=== PATIENT | female | born 1980 | race Caucasian/White ===

== ENCOUNTER 2016-09-19 12:59 | Outpatient (CLI) ==
[2016-03-03 23:12] VITALS: BMI 47.5
== END 2016-09-19 13:00 | disposition home or self-care (01) ==
LOC: LAB 12:59
PROVIDERS: ATTEND Otolaryngology
DX: H66.92 Otitis media, unspecified, left ear (principal)
CPT/HCPCS: 87070

== ENCOUNTER 2016-11-23 15:29 | Outpatient (CLI) ==
[2016-03-03 23:12] VITALS: BMI 47.5
--- NOTE | 2016-11-23 16:37 | CT ---
EXAM: CT Angiogram Chest. HISTORY: Shortness of breath. COMPARISON: None available. TECHNIQUE: Multiple axial images of the chest were obtained following intravenous administration of 125 mL of Omnipaque 350, low osmolar. Images were reformatted in the sagittal and coronal plane. 3-D and maximum intensity projection reformatted images were created on an independent workstation. FINDINGS: Multiple nonenlarged mediastinal lymph nodes are present. Heart size is normal. There i s no pericardial effusion. No pulmonary arterial filling defects are seen. Small focus of nodular ground-glass opacities seen in the posterior left lower lobe on axial images 27-29 and right lower lobe on axial images 31 and 3 2. The lungs are otherwise clear without pleural effusion or pneumothorax. Osseous structures are intact. No acute abnormalities seen in the upper abdomen. IMPRESSION: 1. No evidence for pulmonary embolus. 2. Small foci of pneumonitis in both lower lobes.
== END 2016-11-23 15:30 | disposition home or self-care (01) ==
LOC: RAD 15:29
PROVIDERS: ATTEND Nurse Practitioner Family
DX: R06.02 Shortness of breath (principal)

== ENCOUNTER 2017-01-24 17:33 | Outpatient (CLI) ==
[2016-03-03 23:12] VITALS: BMI 47.5
== END 2017-01-24 17:34 | disposition home or self-care (01) ==
LOC: NONPT 17:33
PROVIDERS: ATTEND Otolaryngology
DX: H92.12 Otorrhea, left ear (principal)
CPT/HCPCS: 87070; 87186

== ENCOUNTER 2017-03-23 07:01 | Outpatient (CLI) ==
[2016-03-03 23:12] VITALS: BMI 47.5
[2017-03-23 07:43] LABS: BASOPHILS # (AUTO) 0.2 K/uL (0-0.2); BASOPHILS % (AUTO) 1.9 % (0.0-3.0); EOSINOPHILS # (AUTO) 0.3 K/ul (0.0-0.7); EOSINOPHILS % (AUTO) 3.6 % (0.0-7.0); HEMATOCRIT 39.5 % (37.0-47.0); HEMOGLOBIN 13.1 g/dl (12.0-16.0); IMMATURE GRANULOCYTE % (AUTO) 0.2 % (0.0-5.0); LYMPHOCYTES # (AUTO) 3.2 K/uL (0.60-3.4); MEAN CORPUSCULAR HEMOGLOBIN 29.2 pg (27.0-31.0); MEAN CORPUSCULAR HGB CONC 33.2 (31.8-35.4); MEAN CORPUSCULAR VOLUME 88.2 fl (81.0-99.0); MONOCYTES # (AUTO) 0.9 K/uL (0.4-2.0); NEUTROPHILS # (AUTO) 4.1 K/ul (2.0-6.9); NEUTROPHILS % (AUTO) 47.3; PLATELET COUNT 335 10^3/uL (140-440); RED BLOOD COUNT 4.48 10^6/ul (4.20-5.40)
[2017-03-23 08:00] LABS: ALBUMIN 3.3 g/dL (3.4-5.0); ALBUMIN/GLOBULIN RATIO 0.83; ANION GAP 14.3; BILIRUBIN,TOTAL 0.25 mg/dL (0.00-1.20); BUN/CREATININE RATIO 12.5; CALCIUM 8.6 mg/dL (8.2-10.2); CHOL/HDL RATIO 4.3 (4.5-5.5); CREATININE 0.72 mg/dL (0.60-1.30); POTASSIUM 4.3 mmol/L (3.5-5.10); TOTAL PROTEIN 7.3 g/dL (6.4-8.2)
== END 2017-03-23 07:02 | disposition home or self-care (01) ==
LOC: LAB 07:01
PROVIDERS: ATTEND Nurse Practitioner Family
DX: E66.3 Overweight (principal); Z72.0 Tobacco use
CPT/HCPCS: 36415; 80053; 80061; 84443; 85025

== ENCOUNTER → 2017-04-19 | Outpatient (CLI) | LOC: AMBL 05:16 | PROVIDERS: ATTEND Internal Medicine Geriatric Medicine | DX: M54.9 Dorsalgia, unspecified (principal); M79.604 Pain in right leg ==

== ENCOUNTER 2017-04-23 08:38 | Emergency (ER) ==
[2017-04-23 08:43] VITALS: BP 132/83; TEMP 97.4; BMI 52.1
[2017-04-23 09:07] LABS: BASOPHILS # (AUTO) 0.1 K/uL (0-0.2); BASOPHILS % (AUTO) 0.9 % (0.0-3.0); EOSINOPHILS # (AUTO) 0.2 K/ul (0.0-0.7); EOSINOPHILS % (AUTO) 1.3 % (0.0-7.0); HEMATOCRIT 43.9 % (37.0-47.0); HEMOGLOBIN 14.9 g/dl (12.0-16.0); IMMATURE GRANULOCYTE % (AUTO) 0.5 % (0.0-5.0); LYMPHOCYTES # (AUTO) 3.5 K/uL (0.60-3.4); LYMPHOCYTES % (AUTO) 23.5 (10.0-50.0); MEAN CORPUSCULAR HEMOGLOBIN 29.1 pg (27.0-31.0); MEAN CORPUSCULAR HGB CONC 33.9 (31.8-35.4); MEAN CORPUSCULAR VOLUME 85.7 fl (81.0-99.0); MONOCYTES # (AUTO) 1.4 K/uL (0.4-2.0); MONOCYTES % (AUTO) 9.3 (0-10); NEUTROPHILS # (AUTO) 9.6 K/ul (2.0-6.9); NEUTROPHILS % (AUTO) 64.5; PLATELET COUNT 387 10^3/uL (140-440); RED BLOOD COUNT 5.12 10^6/ul (4.20-5.40); WHITE BLOOD COUNT 14.81 K/ul (4.6-10.2)
[2017-04-23 09:20] LABS: BILIRUBIN,URINE 1+ (NEGATIVE); KETONES,URINE Negative (NEGATIVE); NITRITE,URINE Negative (NEGATIVE); PROTEIN,URINE 1+ (NEGATIVE); URINE, BLOOD Trace-intact (NEGATIVE)
[2017-04-23 09:21] LABS: ADD URINE MICROSCOPIC NO
[2017-04-23 09:26] LABS: LEUKOCYTE ESTERASE ,URINE 1+ (NEGATIVE)
[2017-04-23 09:28] LABS: ALBUMIN 3.8 g/dL (3.4-5.0); ALBUMIN/GLOBULIN RATIO 0.95; ANION GAP 14.1; BILIRUBIN,TOTAL 0.41 mg/dL (0.00-1.20); BUN/CREATININE RATIO 15.27; CALCIUM 9.3 mg/dL (8.2-10.2); CREATININE 0.72 mg/dL (0.60-1.30); POTASSIUM 4.1 mmol/L (3.5-5.10); TOTAL PROTEIN 7.8 g/dL (6.4-8.2)
[2017-04-23 09:29] LABS: SERUM PREGNANCY INTERNAL QC INTERNAL QC VALID
--- NOTE | 2017-04-23 10:49 | CT ---
EXAM: CT abdomen pelvis without contrast HISTORY: Pain, diffuse COMPARISON: None TECHNIQUE: CT abdomen pelvis performed without intravenous contrast. Coronal and sagittal reformat atul images obtained. FINDINGS: Lung bases clear. No free air. There are no acute abnormalities of the bones. Degenerat genaro change in the spine. The heart normal in size. Evaluation organ parenchyma limited without con trast. Liver appears normal. Gallbladder appears normal. Pancreas appears normal. Spleen appears normal. Adrenals appear normal. No hydronephrosis or nephrolithiasis. No calculi visualized in n ormal course of the ureters. Bladder decompressed and poorly evaluated. Uterus unremarkable. Aorta normal in caliber. No lymphadenopathy or ascites. Small fat-containing umbilical hernia. Stomach appears normal. No dilated loops small bowel. Appendix appears normal. Mild colonic diverticulos is. No inflammatory stranding identified in the abdomen pelvis. IMPRESSION: 1. No acute inflammatory process identified in the abdomen pelvis. 2. Mild colonic diverticulosis.
--- NOTE | 2017-04-23 11:02 | ED.PDOC ---
General ED Provider: Dr. VITO WILDER Chief Complaint: Abdominal Pain Stated Complaint: abdominal pain Time Seen by Physician: 08:45 Information Source: Patient Exam Limitations: No limitations [facility] T[facility] Documentation Reviewed and Agree: Yes GI Complaint Exam - Abdominal Pain Complaint/Exam Onset: Gradual Duration: 7 days Symptoms Are: Still present Timing: Intermittent Initial Severity: Moderate Current Severity: Mild Location of Pain: Diffuse Character: Reports: Dull, Aching Aggravating: Reports: None Alleviating: Reports: None Associated Signs and Symptoms: Reports: Dysuria, Diarrhea. Denies: Diaphoresis , Fever, Cough, Chest pain, Dizziness, Back pain, Constipation, Blood in stool, Urinary frequency, Decreased urine output, Decreased appetite, Vaginal bleeding , Vaginal discharge, Nausea, Vomiting, Sore throat, Decreased activity Related History: Reports: Similar episode AAA Risk Factors: Reports: None Cardiac Risk Factors: Reports: None Ectopic Risk Factors: Reports: None Ovarian Torsion Risk Factors: Reports: None Surgical Obstruction Risk Factors: Reports: None Related Surgical History: Reports: None Patient Rh Status: Unknown Abdominal Findings: Present: None Review of Systems - Review Of Systems Constitutional: Reports: No symptoms Eyes: Reports: No symptoms Ears, Nose, Mouth, Throat: Reports: No symptoms Respiratory: Reports: No symptoms Cardiac: Reports: No symptoms GI: Reports: Diarrhea : Reports: No symptoms Musculoskeletal: Reports: No symptoms Skin: Reports: No symptoms Neurological: Reports: No symptoms Endocrine: Reports: No symptoms Hematologic/Lymphatic: Reports: No symptoms All Other Systems: Reviewed and Negative Past Medical History - Past Medical History Endocrine: Reports: None Cardiovascular: Reports: None Respiratory: Reports: None Hematological: Reports: None Gastrointestinal: Reports: None Genitourinary: Reports: None Neuro/Psych: Reports: Depression Musculoskeletal: Reports: None Cancer: Reports: None Last Menstrual Period: 04/03/17 - Surgical History General Surgical History: Reports: Unknown - Family History Family History: Reports: Unknown - Social History Smoking Status: Current every day smoker Hx Substance Use: No Alcohol Screening: None Physical Exam - Physical Exam Appearance: Well-appearing, No pain distress, Well-nourished Eyes: TREY, EOMI, Conjunctiva clear ENT: Ears normal, Nose normal, Oropharynx normal Respiratory: Airway patent, Breath sounds clear, Breath sounds equal, Respirations nonlabored Cardiovascular: RRR, Pulses normal, No rub, No murmur GI/: Soft, Nontender, No masses, Bowel sounds normal, No Organomegaly Musculoskeletal: Normal strength, ROM intact, No edema, No calf tenderness Skin: Warm, Dry, Normal color Neurological: Sensation intact, Motor intact, Reflexes intact, Cranial nerves intact, Alert, Oriented Psychiatric: Affect appropriate, Mood appropriate Critical Care Note - Critical Care Note Total Time (mins): 0 Course - Course Hematology/Chemistry: 04/23/17 09:01 04/23/17 09:01 Orders, Labs, Meds: Lab Review 04/23/17 04/23/17 08:57 09:01 WBC 14.81 H RBC 5.12 Hgb 14.9 Hct 43.9 MCV 85.7 MCH 29.1 MCHC 33.9 RDW Coeff of Shreyas 13.2 Plt Count 387 Immature Gran % (Auto) 0.5 Neut % (Auto) 64.5 Lymph % (Auto) 23.5 [place] % (Auto) 9.3 Eos % (Auto) 1.3 Baso % (Auto) 0.9 Immature Gran # (Auto) 0.1 Neut # 9.6 H Lymph # 3.5 H [place] # 1.4 Eos # 0.2 Baso # 0.1 Sodium 138 Potassium 4.1 Chloride 106 Carbon Dioxide 22 Anion Gap 14.1 BUN 11 Creatinine 0.72 Estimated GFR (MDRD) 91.00 BUN/Creatinine Ratio 15.27 Glucose 94 Calcium 9.3 Total Bilirubin 0.41 AST 8 L ALT 14 Alkaline Phosphatase 52 Total Protein 7.8 Albumin 3.8 Globulin 4.0 Albumin/Globulin Ratio 0.95 Amylase 42 Lipase 11 Serum , Qual Negative Urine Color Yellow Urine Clarity Clear Urine pH 6.0 Ur Specific [place] >=1.030 Urine Protein 1+ Urine Glucose (UA) Negative Urine Ketones Negative Urine Blood Trace-intact Urine Nitrite Negative Urine Bilirubin 1+ Urine Urobilinogen 0.2 Ur Leukocyte Esterase 1+ Orders Category Date Time Status AMYLASE Stat LAB 04/23/17 09:01 Completed CBC W/ AUTO DIFF Stat LAB 04/23/17 09:01 Completed COMPREHENSIVE METABOLIC PANEL Stat LAB 04/23/17 09:01 Completed LIPASE Stat LAB 04/23/17 09:01 Completed SERUM Stat LAB 04/23/17 09:01 Completed URINALYSIS C & S IF INDICATED Stat LAB 04/23/17 08:57 Completed URINE CULTURE Routine LAB 04/23/17 09:[address] ABDOMEN/PELVIS WO CONTRAST Stat RADS 04/23/17 08:51 Completed Vital Signs: Temp Pulse Resp BP Pulse Ox 04/23/17 08:38 97.4 F L 82 20 132/83 98 Departure - Departure Time of Disposition: 11:01 (elevated WBC BUT SHE IS ON STEROID ABDOMINAL EXAM AND CT BOTH NEGATIVE) Disposition: HOME SELF-CARE Discharge Problem: Abdominal pain, UTI (urinary tract infection) Instructions: Urinary Tract Infection in Women (ED), Abdominal Pain (ED) Condition: Good Pt referred to PMD for follow-up: Yes Additional Instructions: Please call your Family Physician as soon as possible to schedule a follow-up appointment. Prescriptions: Sulfamethoxazole/Trimethoprim [Bactrim Ds 800/160 mg] 1 tab PO Q12HR #10 tablet Allergies/Adverse Reactions: Allergies codeine Allergy (Severe, Verified 04/23/17 08:43) nausea/FEVER amoxicillin Allergy (Verified 04/23/17 08:43) Home Medications: Ambulatory Orders Naproxen [Naprosyn] 500 mg PO BID #50 01/31/17 Sulfamethoxazole/Trimethoprim [Bactrim Ds 800/160 mg] 1 tab PO Q12HR #10 tablet 04/23/17 Disposition Discussed With: Patient
== END 2017-04-23 11:28 | disposition home or self-care (01) ==
LOC: ED 08:38
DX: N39.0 Urinary tract infection, site not specified (principal); R10.84 Generalized abdominal pain; F17.210 Nicotine dependence, cigarettes, uncomplicated
CPT/HCPCS: 36415; 80053; 81001; 82150; 83690; 84703; 85025; 87086; 99283

== ENCOUNTER 2017-04-30 07:57 | Outpatient (CLI) ==
--- NOTE | 2017-04-30 09:00 | CT ---
EXAM: CT of the lumbar spine with contrast History: Lower back pain. Comparison: CT abdomen pelvis 04/23/2017 Technique: Multiplanar CT images through the lumbar spine were obtained following administration of IV contrast Findings: No acute fracture or subluxation. Moderate degenerative disc disease at T11-T12. Mild di sc space narrowing within the lumbar spine with a few small anterior osteophytes. T11-T12: No significant disc bulge, central canal stenosis or bony neural foraminal narrowing. T12-L1: No significant disc bulge, central canal stenosis or neural foraminal narrowing. L1-L2: No significant disc bulge, central canal stenosis or neural foraminal narrowing. L2-L3: No significant disc bulge, central canal stenosis or neural foraminal narrowing. L3-L4: No significant disc bulge, central canal stenosis or neural foraminal narrowing. L4-L5: No significant disc bulge or central canal stenosis. Mild bilateral bony neural foraminal n arrowing secondary to ligamentous and facet hypertrophy. L5-S1: No significant disc bulge or central canal stenosis. Moderate right and mild to moderate lef t bony neural foraminal narrowing secondary to ligamentous and facet hypertrophy. No abnormal contrast enhancement. Impression: 1. No acute osseous abnormality of the lumbar spine. 2. No abnormal contrast enhancement. 3. Level by level analysis as detailed above. 4. Moderate degenerative disc disease at T11-T12.
== END 2017-04-30 07:58 | disposition home or self-care (01) ==
LOC: RAD 07:57
PROVIDERS: ATTEND Nurse Practitioner Family
DX: M54.5 Low back pain (principal)

== ENCOUNTER 2017-05-01 07:56 | Outpatient (CLI) ==
--- NOTE | 2017-05-01 09:33 | CT ---
Exam: CT of the right femur without intravenous contrast followed by CT of the right femur with int ravenous contrast. Reason for exam: Pain in right thigh. FINDINGS: No acute fracture or malalignment is seen within the right femur. No contrast enhancing mass lesion or discrete soft tissue fluid collection. No inflammatory changes are seen in the subcutaneous fat . The muscle bellies appear intact. The vascular structures appear grossly unremarkable. Impression: 1. No acute fracture or malalignment is seen within the right femur. 2. No soft tissue lesion, fluid collection, or inflammatory changes seen in the soft tissues adjace nt to the right femur.
== END 2017-05-01 07:57 | disposition home or self-care (01) ==
LOC: RAD 07:56
PROVIDERS: ATTEND Nurse Practitioner Family
DX: M79.671 Pain in right foot (principal); M79.651 Pain in right thigh; R20.0 Anesthesia of skin

== ENCOUNTER 2017-08-07 08:09 | Outpatient (CLI) ==
[2017-08-07 08:44] LABS: BASOPHILS # (AUTO) 0.2 K/uL (0-0.2); BASOPHILS % (AUTO) 1.8 % (0.0-3.0); EOSINOPHILS # (AUTO) 0.3 K/ul (0.0-0.7); EOSINOPHILS % (AUTO) 3.7 % (0.0-7.0); HEMATOCRIT 37.7 % (37.0-47.0); HEMOGLOBIN 12.7 g/dl (12.0-16.0); IMMATURE GRANULOCYTE % (AUTO) 0.2 % (0.0-5.0); LYMPHOCYTES # (AUTO) 2.7 K/uL (0.60-3.4); LYMPHOCYTES % (AUTO) 31.9 (10.0-50.0); MEAN CORPUSCULAR HEMOGLOBIN 29.4 pg (27.0-31.0); MEAN CORPUSCULAR HGB CONC 33.7 (31.8-35.4); MEAN CORPUSCULAR VOLUME 87.3 fl (81.0-99.0); MONOCYTES # (AUTO) 0.8 K/uL (0.4-2.0); MONOCYTES % (AUTO) 9.6 (0-10); NEUTROPHILS # (AUTO) 4.5 K/ul (2.0-6.9); NEUTROPHILS % (AUTO) 52.8; PLATELET COUNT 320 10^3/uL (140-440); RED BLOOD COUNT 4.32 10^6/ul (4.20-5.40); WHITE BLOOD COUNT 8.56 K/ul (4.6-10.2)
[2017-08-07 08:51] LABS: ALBUMIN 3.1 g/dL (3.4-5.0); ALBUMIN/GLOBULIN RATIO 0.79; ANION GAP 12.2; BILIRUBIN,TOTAL 0.52 mg/dL (0.00-1.20); CALCIUM 8.9 mg/dL (8.2-10.2); CREATININE 0.7 mg/dL (0.60-1.30); POTASSIUM 4.2 mmol/L (3.5-5.10)
--- NOTE | 2017-08-07 11:19 | CT ---
EXAM: CT chest with and without contrast HISTORY: Shortness of breath COMPARISON: CT PE 11/23/2016 and Chest x-ray 06/02/2015 TECHNIQUE: Serial axial images of the chest were obtained after and before 75 ml of Omnipaque IV con trast was administered. These were obtained from the lung apices to the upper abdomen. FINDINGS: The thyroid is normal. Visualized vessels are unremarkable. There is no dissection, aneu rysm or stenosis. The heart is normal in size without pericardial effusion. There is no mediastinal , hilar or axillary pathologically enlarged lymph nodes. There is no pneumothorax or pleural effusion. There is no pulmonary nodule or consolidation. There is minimal right lower lobe atelectasis. Ground-glass in the lower lobes from prior CT have resolved . The airways are patent. Limited views of the soft tissues in the upper abdomen are unremarkable. The osseous structures are unremarkable. IMPRESSION: 1. No acute cardiopulmonary process, nodule or consolidation. There has been resolution of the prev iously identified ground-glass in the lower lobes. 2. Minimal left lower lobe atelectasis.
== END 2017-08-07 08:10 | disposition home or self-care (01) ==
LOC: RAD 08:09
PROVIDERS: ATTEND Nurse Practitioner Family
DX: R06.02 Shortness of breath (principal); R10.84 Generalized abdominal pain
CPT/HCPCS: 36415; 80053; 80074; 82150; 83690; 85025

== ENCOUNTER 2017-08-09 10:49 | Outpatient (CLI) ==
--- NOTE | 2017-08-09 12:49 | CT ---
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 COMPARISON: None TECHNIQUE: Serial axial images of the facial bones/sinuses were obtained without and with 125 ml of Omnipaque 350 IV contrast. These were viewed in coronal, sagittal and axial planes. FINDINGS: Limited views of the intracranial contents demonstrate no acute contrast enhancing lesion. The orbital globes and retrobulbar structures are normal. Paranasal sinuses demonstrate minimal mu cosal thickening. The left mastoid air cells are clear. There are postsurgical changes of a right m astoidectomy. No definitive soft tissue mass is identified. The submandibular glands and parotid gl ands are normal. The airways are patent. There are bilateral cervical and submandibular lymph nodes which are at the upper limit of normal at 0.8 cm in short axis. The osseous structures demonstrate no cyst of the mandible. Dental amalgam limits this evaluation. T here is scattered dental abnormalities consistent with areas and prior dental work. The osseous stru ctures are otherwise unremarkable. IMPRESSION: 1. No acute osteolytic lesion or cyst of the mandible. 2. Postsurgical changes of the right year and mastoid with no residual soft tissue in this region. I f further evaluation of the temporal bone is clinically indicated, temporal bone CT may be obtained. 3. Scattered bilateral cervical and submandibular lymph nodes which are nonspecific.
== END 2017-08-09 10:50 | disposition home or self-care (01) ==
LOC: RAD 10:49
PROVIDERS: ATTEND Nurse Practitioner Family
DX: K09.0 Developmental odontogenic cysts (principal); Z86.69 Personal history of other diseases of the nervous system and sense organs

== ENCOUNTER 2017-08-10 08:11 | Outpatient (CLI) ==
--- NOTE | 2017-08-10 09:10 | US ---
EXAM: Right upper quadrant abdominal ultrasound. History: Abdominal pain with nausea and vomiting. Comparison: CT abdomen pelvis 04/23/2017 Technique: Multiple sonographic images through the abdomen were obtained. Color duplex Doppler was used to interrogate vascular flow. Findings: The liver is not enlarged according to the sonographic measurement given. No focal liver lesions qamar ntified sonographically. There is antegrade flow within the main portal vein. No abdominal ascites. Limited visualization of the right kidney demonstrates no evidence for hydronephrosis. No shadowin g gallstones. Gallbladder wall is not thickened. Common bile duct measures 0.4 cm in caliber. Impression: Unremarkable exam
== END 2017-08-10 08:12 | disposition home or self-care (01) ==
LOC: RAD 08:11
PROVIDERS: ATTEND Nurse Practitioner Family
DX: R10.84 Generalized abdominal pain (principal)

== ENCOUNTER 2017-08-13 07:54 | Outpatient (CLI) ==
--- NOTE | 2017-08-13 10:29 | NM ---
EXAM: Hepatobiliary imaging HISTORY: Generalized abdominal pain COMPARISON: Limited abdominal ultrasound on 08/10/2017 was unremarkable. TECHNIQUE: Patient was injected 5.1 mCi of technetium 99m Choletec intravenously. Multiple anterior scintigraphic images of the right upper quadrant region of the abdomen were obtained up to 1 hour int erval. Patient was subsequently infused 2 mcg of cholecystokinin intravenously and gallbladder eject ion fraction was calculated. FINDINGS: There is normal visualization of liver, gallbladder, bile duct and small bowel loops. Gall bladder ejection fraction is 91%. IMPRESSION: Normal study
== END 2017-08-13 07:55 | disposition home or self-care (01) ==
LOC: RAD 07:54
PROVIDERS: ATTEND Nurse Practitioner Family
DX: R10.84 Generalized abdominal pain (principal)

== ENCOUNTER 2017-10-30 13:08 | Outpatient (CLI) ==
[2017-10-30 15:14] VITALS: BMI 51.5
== END 2017-10-30 13:09 | disposition home or self-care (01) ==
LOC: DIETCN 13:08
PROVIDERS: ATTEND Family Medicine
DX: Z68.43 Body mass index [BMI] 50.0-59.9, adult (principal)

== ENCOUNTER 2017-10-31 07:55 | Outpatient (CLI) ==
[2017-10-30 15:14] VITALS: BMI 51.5
== END 2017-10-31 07:56 | disposition home or self-care (01) ==
LOC: LAB 07:55
PROVIDERS: ATTEND Family Medicine
DX: R20.0 Anesthesia of skin (principal); R06.02 Shortness of breath; E78.5 Hyperlipidemia, unspecified; Z68.43 Body mass index [BMI] 50.0-59.9, adult
CPT/HCPCS: 36415; 80053; 80061; 82607; 82746; 84443; 85025

== ENCOUNTER 2018-01-09 10:55 | Outpatient (CLI) | END 2018-01-09 10:56 | disposition home or self-care (01) | LOC: RHC-LAB 10:55 | PROVIDERS: ATTEND Otolaryngology | DX: H92.12 Otorrhea, left ear (principal) | CPT/HCPCS: 87070 ==

== ENCOUNTER 2018-01-15 11:11 | Outpatient (POV) | END 2018-01-15 17:00 | LOC: OUTPT 11:11 | PROVIDERS: ATTEND Otolaryngology | DX: H91.90 Unspecified hearing loss, unspecified ear (principal) ==

== ENCOUNTER 2018-04-23 17:05 | Outpatient (CLI) | END 2018-04-23 17:06 | disposition home or self-care (01) | LOC: RHC-LAB 17:05 | PROVIDERS: ATTEND Otolaryngology | DX: H65.22 Chronic serous otitis media, left ear (principal) | CPT/HCPCS: 87070; 87186 ==

== ENCOUNTER 2018-10-24 09:18 | Outpatient (CLI) | END 2018-10-24 09:19 | disposition home or self-care (01) | LOC: RHC-LAB 09:18 → FCC-LAB 09:19 | PROVIDERS: ATTEND Family Medicine | DX: H57.9 Unspecified disorder of eye and adnexa (principal); L83 Acanthosis nigricans | CPT/HCPCS: 36415; 83037; 85025 ==

== ENCOUNTER 2018-12-12 11:18 | Outpatient (CLI) ==
--- NOTE | 2018-12-12 12:52 | MRI ---
Examination: MRI of the brain with and without contrast 12/12/2018 Clinical information: Benign paroxysmal vertigo, left ear. Comparison: None. TECHNIQUE: Sagittal pre and postcontrast T1, axial pre and postcontrast T1, axial T2, axial FLAIR, c oronal T2 gradient echo, coronal postcontrast T1 and diffusion weighted imaging was performed. FINDINGS: The midline structures and craniocervical junction are unremarkable. The ventricles are n ormal in size and configuration. There is no mass effect, midline shift or extra-axial abnormality. Scattered T2 hyperintense foci within the frontoparietal and periventricular white matter is most co mpatible with minimal chronic microvascular ischemic change. No infratentorial signal abnormalities seen. No diffusion-weighted abnormality is evident. Specifically, there is no evidence of an acute infarct . There are expected flow voids within the major intracranial arterial vascular structures. There i s no MR evidence of intracranial hemorrhage. No pathologic intracranial contrast enhancement seen. There are postoperative right mastoidectomy changes with minor contrast enhancement along the margins of the mastoid bowl. Mild S-shaped nasal septum. Impression: 1. No evidence of an acute infarct. No pathologic intracranial contrast enhancement. 2. Minimal chronic microvascular ischemic changes within the supratentorial white matter. 3. Postoperative right mastoidectomy change.
== END 2018-12-12 11:19 | disposition home or self-care (01) ==
LOC: RAD 11:18
PROVIDERS: ATTEND Family Medicine
DX: H81.12 Benign paroxysmal vertigo, left ear (principal)
CPT/HCPCS: 36415; 82565

== ENCOUNTER 2019-01-22 15:22 | Outpatient (CLI) | END 2019-01-22 15:23 | disposition home or self-care (01) | LOC: RHC-LAB 15:22 | PROVIDERS: ATTEND Otolaryngology | DX: H66.90 Otitis media, unspecified, unspecified ear (principal) | CPT/HCPCS: 87070; 87186 ==